=== PATIENT | male | born 1970 | race Caucasian/White ===

== ENCOUNTER 2019-05-09 23:30 | Emergency (ER) | payer OTHER ==
[~2019-05-09] VITALS: Ht 182.9 cm; Wt 83.9 kg
[2019-05-09 23:41] VITALS: BP 150/88
[2019-05-10] MEDS ORDERED: CHLORDIAZEPOXIDE HCL 25 MG CAPSULE ONE (00:03)
[2019-05-10] MEDS ORDERED: CHLORDIAZEPOXIDE HCL 25 MG CAPSULE PO ONE (00:30)
== END 2019-05-10 00:14 | disposition home or self-care (01) ==
LOC: ER 23:33
DX: F10.239 Alcohol dependence with withdrawal, unspecified (principal); Z60.2 Problems related to living alone; Y90.9 Presence of alcohol in blood, level not specified